=== PATIENT | female | born 1980 | race Asian ===

== ENCOUNTER 2021-10-07 13:19 | Emergency (ER) | payer BC, OTHER ==
[~2021-10-07] VITALS: Ht 170.2 cm; Wt 149.7 kg
[2021-10-07 13:29] VITALS: BP 153/79; TEMP 97.9
== END 2021-10-07 14:29 | disposition home or self-care (01) ==
LOC: ED 13:19
DX: R10.31 Right lower quadrant pain (principal); Z3A.13 13 weeks gestation of pregnancy; Z87.898 Personal history of other specified conditions
CPT/HCPCS: 81000; 81025; 99283